=== PATIENT | male | born 1975 | race Caucasian/White ===

== ENCOUNTER → 2019-03-04 14:13 | Outpatient (BNVA) | payer MEDICARE, SELFPAY | PROVIDERS: Family Provider Internal Medicine; PCP Internal Medicine; Visit Provider Anesthesiology | DX: G89.29 Other chronic pain (principal); M54.16 Radiculopathy, lumbar region; M51.36 Other intervertebral disc degeneration, lumbar region; M50.90 Cervical disc disorder, unspecified, unspecified cervical region; M99.81 Other biomechanical lesions of cervical region; Z79.891 Long term (current) use of opiate analgesic | CPT/HCPCS: 99214 ==

== ENCOUNTER → 2019-04-30 12:59 | Outpatient (BNVA) | payer MEDICARE, SELFPAY | PROVIDERS: Family Provider Internal Medicine; PCP Internal Medicine; Visit Provider Anesthesiology | DX: G89.29 Other chronic pain (principal); M51.36 Other intervertebral disc degeneration, lumbar region; M54.16 Radiculopathy, lumbar region; M50.90 Cervical disc disorder, unspecified, unspecified cervical region; M99.81 Other biomechanical lesions of cervical region; Z79.891 Long term (current) use of opiate analgesic | CPT/HCPCS: 99214 ==

== ENCOUNTER → 2019-08-20 13:34 | Outpatient (BNVA) | payer MEDICARE, SELFPAY | PROVIDERS: Family Provider Internal Medicine; PCP Internal Medicine; Visit Provider Nurse Practitioner | DX: M54.2 Cervicalgia (principal); M54.41 Lumbago with sciatica, right side; M54.42 Lumbago with sciatica, left side; M54.16 Radiculopathy, lumbar region; Z79.891 Long term (current) use of opiate analgesic | CPT/HCPCS: 99213; 99214 ==

== ENCOUNTER → 2019-10-24 07:56 | Outpatient (BNVA) | payer MEDICARE, SELFPAY | PROVIDERS: Family Provider Internal Medicine; PCP Internal Medicine; Visit Provider Anesthesiology | DX: G89.29 Other chronic pain (principal); M50.90 Cervical disc disorder, unspecified, unspecified cervical region; M99.81 Other biomechanical lesions of cervical region; M54.42 Lumbago with sciatica, left side; M54.41 Lumbago with sciatica, right side; M51.36 Other intervertebral disc degeneration, lumbar region; M54.16 Radiculopathy, lumbar region; Z79.891 Long term (current) use of opiate analgesic | CPT/HCPCS: 99213; 99214 ==

== ENCOUNTER → 2019-12-30 08:16 | Outpatient (BNVA) | payer MEDICARE, SELFPAY | PROVIDERS: Family Provider Internal Medicine; PCP Internal Medicine; Visit Provider Anesthesiology | DX: G89.29 Other chronic pain (principal); M50.90 Cervical disc disorder, unspecified, unspecified cervical region; M99.81 Other biomechanical lesions of cervical region; M51.36 Other intervertebral disc degeneration, lumbar region; M54.16 Radiculopathy, lumbar region; M54.41 Lumbago with sciatica, right side; M54.42 Lumbago with sciatica, left side; Z79.891 Long term (current) use of opiate analgesic | CPT/HCPCS: 99213; 99214 ==

== ENCOUNTER → 2020-01-23 09:04 | Outpatient (BNVA) | payer MEDICARE, SELFPAY | PROVIDERS: Family Provider Internal Medicine; PCP Internal Medicine; Visit Provider Anesthesiology | DX: G89.29 Other chronic pain (principal); M54.41 Lumbago with sciatica, right side; M54.42 Lumbago with sciatica, left side; M51.36 Other intervertebral disc degeneration, lumbar region; M54.16 Radiculopathy, lumbar region; M99.81 Other biomechanical lesions of cervical region; M50.90 Cervical disc disorder, unspecified, unspecified cervical region; Z79.899 Other long term (current) drug therapy; Z79.891 Long term (current) use of opiate analgesic | CPT/HCPCS: 99213; 99214 ==

== ENCOUNTER → 2020-03-26 08:04 | Outpatient (BNVA) | payer MEDICARE, SELFPAY | PROVIDERS: Family Provider Internal Medicine; PCP Internal Medicine; Visit Provider Anesthesiology | DX: G89.29 Other chronic pain (principal); M51.36 Other intervertebral disc degeneration, lumbar region; M54.16 Radiculopathy, lumbar region; M99.81 Other biomechanical lesions of cervical region; M50.90 Cervical disc disorder, unspecified, unspecified cervical region; Z79.899 Other long term (current) drug therapy; Z79.891 Long term (current) use of opiate analgesic | CPT/HCPCS: 99214 ==

== ENCOUNTER 2020-04-06 09:49 | Emergency (ER) | payer MEDICARE, SELFPAY ==
[2020-04-06 09:56] VITALS: BP 157/92; PULSE 67; RESP 16; TEMP 36.5; O2SAT 100; BMI 22.2
--- NOTE | 2020-04-06 10:13 | USCV_ITS ---
Zak Coleman Age: 44 Gender: M : 1975 Exam Date: 04/06/2020 10:31 Ordering Phys: Jose Nixon DO Technologist: Eugenio Gilmore Exam Location: [facility] [place]_ Indication: leg pain PROCEDURES: Venous duplex imaging was performed in only the right lower extremity. The following venous structures were evaluated: common femoral vein, profunda vein, proximal portion of the greater saphenous vein, superficial femoral vein, and the popliteal vein. In addition, the posterior tibial and peroneal trunk were evaluated. Serial compression, augmentation maneuvers, and spectral Doppler flow evaluation were performed. FINDINGS: Normal 2-D Doppler and augmentation and compressibility throughout the lower extremity venous structures. Additional imaging through the proximal calf veins also reveals no thrombus. Limited evaluation of the greater saphenous vein is patent with no thrombus.. CONCLUSIONS No evidence of right lower extremity DVT. Manuel De Paz MD (Electronically Signed) Final Date: 06 April 2020 11:49 S
[2020-04-06 10:17] VITALS: BP 153/88; PULSE 75; RESP 16; O2SAT 97
--- NOTE | 2020-04-06 10:18 | W.ED.GENADLT ---
HPI - General Adult General: Chief complaint: General Medical Stated complaint: chest/ r leg pain, suspects blood clot Time Seen by Provider: 04/06/20 09:50 History of Present Illness: HPI narrative: 44-year-old male presents complaining of right medial thigh pain radiating up into the groin. He did state initially thought he strained a muscle in his leg. 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 (a nurses note list of chest pain. When I talked to him he states he will get brief twinges of chest pain that last for seconds and then resolved not associated shortness of breath and he has none now.) He has chronic neck and back pain which remains largely unchanged he is on oxycodone and tramadol for that. Onset (ago): day(s) Location: lower extremity (Right medial thigh) Severity: mild Quality: aching Relieving factors: none Exacerbating factors: none Associated symptoms: Deny chest pain, confusion, cough, diaphoresis, decreased appetite, dyspnea, fevers/chills, headache(s), malaise, nausea, rash, palpitations, seizures, short of breath, syncope, vomiting or weakness Review of Systems Const: Denies: malaise or diaphoresis ENMT: Denies: throat pain, ear or mastoid pain, nasal discharge or nasal congestion Card: Denies: chest pain or palpitations Resp: Denies: dyspnea GI: Denies: nausea or vomiting : Denies: flank pain, dysuria, urinary frequency or urinary urgency Skin/Breast: Denies: rash Neuro: Denies: headache(s) or confusion [facility] ED PFSH: Medical History Cervical disc disease Chronic low back pain DDD (degenerative disc disease), lumbar Encounter for long-term opiate analgesic use Left forearm fracture Long-term use of high-risk medication Lumbar radiculitis Neural foraminal stenosis of cervical spine Opioid contract exists Surgical History History of surgery on arm Steal plate due to compound fx 1998 Left arm Family History Other Age related osteoporosis CAD (coronary artery disease) Heart disease Social History Smoking and tobacco status: former smoker Second hand smoke exposure: No Alcohol intake: never History of recent travel: No Physical Exam Const: COMMON NORMALS: no acute distress GENERAL APPEARANCE: cooperative and comfortable ORIENTATION/CONSCIOUSNESS: Yes awake, Yes oriented to person, Yes oriented to place and Yes oriented to time HENMT: COMMON NORMALS: normocephalic, atraumatic and hearing grossly normal bilaterally HEAD & SCALP: normocephalic and atraumatic Neck/C-Spine: COMMON NORMALS: no JVD Resp: COMMON NORMALS: normal respiratory effort, No retractions, No use of accessory muscles and clear to auscultation bilaterally AUSCULTATION: clear to auscultation bilaterally Cardio: COMMON NORMALS: no JVD, regular rate, regular rhythm and No murmurs present (Cardio) RATE: regular rate RHYTHM: regular rhythm GI: COMMON NORMALS: Soft to palpation and No hepatosplenomegaly present AUSCULTATION: Yes normoactive bowel sounds PALPATION: Yes Soft to palpation, No Tenderness to palpation present (GI), No Guarding due to palpation present (GI) and Yes No hepatosplenomegaly present Extremity: COMMON NORMALS: normal to inspection, capillary refill normal, no clubbing, cyanosis or edema, no calf tenderness and no pedal edema Neuro: SENSORIUM/ORIENTATION: Yes oriented to person, Yes oriented to place and Yes oriented to time Skin: COMMON NORMALS: no rashes or lesions noted GENERAL SKIN EXAM: no rashes or lesions noted Course Vital Signs: Vital signs: Vital Signs Temperature 97.7 F 04/06/20 09:56 Pulse Rate 84 04/06/20 11:47 Respiratory Rate 18 04/06/20 11:47 Blood Pressure 134/74 04/06/20 11:47 Pulse Oximetry 98 04/06/20 11:47 MDM - General Adult MDM Narrative: Medical decision making narrative: Venous duplex negative patient stable. His biggest concern is of a DVT. He is not having any chest discomfort now. He does have a pain that is reproducible with movement in the leg suspect he has a strain of the gracilis muscle. Treat with anti-inflammatories ice and heat return if has further problems. Lab Data: Labs: Lab Results 04/06/20 04/06/20 04/06/20 Range/Units 10:28 10:28 10:28 WBC 8.6 (4.0-10.0) 10^3/ uL RBC 4.69 (4.1-5.3) 10^6/u L Hgb 13.6 (11.7-16.6) g/dL Hct 40.8 L (42.0-52.0) % MCV 87.0 (80-94) fL MCH 29.0 (28.0-34.0) pg MCHC 33.3 (30.0-36.0) g/dL RDW 12.0 L (12.1-15.1) % Plt Count 308 (130-400) 10^3/c mm MPV 9.6 (7.4-10.4) fL Neut % (Auto) 79.3 % Lymph % (Auto) 11.8 % [place] % (Auto) 6.7 % Eos % (Auto) 0.9 % Baso % (Auto) 0.9 % Neut # (Auto) 6.78 (1.8-7.7) 10^3/u L Lymph # (Auto) 1.0 (0.8-4.8) 10^3/u L [place] # (Auto) 0.6 (0.2-0.9) 10^3/u L Eos # (Auto) 0.1 (0.0-0.8) 10^3/u L Baso # (Auto) 0.1 (0.0-0.1) 10^3/u L Nucleated RBC % (a uto) 0 % Nucleated RBCs # 0.0 /100WBC PT 14.20 (12.1-14.9) SECO NDS INR 1.06 (0.8-1.2) APTT 27.4 (23.9-36.7) SECO NDS Sodium 137 (136-145) mmol/L Potassium 3.9 (3.5-5.1) mmol/L Chloride 100 (98-107) mmol/L Carbon Dioxide 30 H (22-29) mmol/L Anion Gap 10.9 (5-19) BUN 10 (6-20) mg/dL Creatinine 0.7 (0.7-1.2) mg/dL GFR Calculation 121.4 (90-130) mL/min Glucose 98 (65-115) mg/dL Calculated Osmolal ity 283 L (285-295) mOsm/k g Calcium 9.6 (8.5-10.5) mg/dL Total Bilirubin 0.7 (0.15-1.2) mg/dL AST 18 (0-40) U/L ALT 14 (0-41) U/L Alkaline Phosphata se 63 (40-130) IU/L Total Protein 7.7 (6.6-8.7) g/dL Albumin 4.5 (3.5-5.2) g/dL Globulin 3.2 (1.3-4.6) g/dL Discharge Plan Discharge Patient Disposition: Home Clinical Impression: Strain of groin Condition: Stable Prescriptions: No Action oxycodone 15 mg tablet 15 mg PO .5 times a day PRN (Reason: pain) 30 Days Qty: 150 RF: 0 oxycodone 15 mg tablet 15 mg PO .5 times a day PRN (Reason: pain) 30 Days Qty: 30 RF: 0 tramadol 50 mg tablet 50 mg PO QID PRN (Reason: pain) 30 Days Qty: 150 RF: 1 Discharge Orders: Discharge ED (Routine); Ordered 04/06/20 Ordered By: Jose Nixon Referrals: Cornelius Gomez MD [Primary Care Provider] - Discharge Diet: Usual diet Discharge Activity: Increase activity as tolerated Patient Instructions: Opioid Safety Coding Level of Care Code ED Mortgage Protection Specialist for Karely Donovan
[2020-04-06 10:43] LABS: Basophils # 0.1 10^3/uL (0.0-0.1); Basophils % 0.9 %; Eosinophils # 0.1 10^3/uL (0.0-0.8); Eosinophils % 0.9 %; Hematocrit 40.8 % (42.0-52.0); Hemoglobin 13.6 g/dL (11.7-16.6); Lymphocytes % 11.8 %; Mean Corpuscular HGB Conc 33.3 g/dL (30.0-36.0); Mean Platelet Volume 9.6 fL (7.4-10.4); Monocytes # 0.6 10^3/uL (0.2-0.9); Monocytes % 6.7 %; Neutrophils # 6.78 10^3/uL (1.8-7.7); Neutrophils % 79.3 %; Nucleated Red Blood Cells % 0 %; Platelet Count 308 10^3/cmm (130-400); Red Blood Count 4.69 10^6/uL (4.1-5.3); White Blood Count 8.6 10^3/uL (4.0-10.0)
--- NOTE | 2020-04-06 10:47 | PC.NURSE ---
patient c/o right thigh pain radiating up into the groin x 2 weeks, getting worse.
[2020-04-06 10:56] LABS: Alanine Aminotransferase 14 U/L (0-41); Albumin Level 4.5 g/dL (3.5-5.2); Alkaline Phosphatase 63 IU/L (40-130); Anion Gap 10.9 (5-19); Aspartate Amino Transferase 18 U/L (0-40); Blood Urea Nitrogen 10 mg/dL (6-20); Calcium 9.6 mg/dL (8.5-10.5); Carbon Dioxide 30 mmol/L (22-29); Chloride 100 mmol/L (98-107); Globulin 3.2 g/dL (1.3-4.6); Glomerular Filtration Rate 121.4 mL/min (90-130); Glucose 98 mg/dL (65-115); Osmolality Calculated 283 mOsm/kg (285-295); Potassium 3.9 mmol/L (3.5-5.1); Sodium 137 mmol/L (136-145); Total Bilirubin 0.7 mg/dL (0.15-1.2); Total Protein 7.7 g/dL (6.6-8.7)
[2020-04-06 11:03] VITALS: BP 134/76; PULSE 70; RESP 16; O2SAT 98
[2020-04-06 11:16] LABS: INR 1.06 (0.8-1.2)
[2020-04-06 11:18] LABS: Partial Thromboplastin Time 27.4 SECONDS (23.9-36.7)
[2020-04-06 11:47] VITALS: BP 134/74; PULSE 84; RESP 18; O2SAT 98
== END 2020-04-06 11:47 | disposition home or self-care (01) ==
PROVIDERS: Emergency Provider Family Medicine; PCP Internal Medicine
DX: S39.011A Strain of muscle, fascia and tendon of abdomen, initial encounter (principal); X58.XXXA Exposure to other specified factors, initial encounter; Z87.891 Personal history of nicotine dependence; M79.604 Pain in right leg
CPT/HCPCS: 80053; 85025; 85610; 85730; 93971; 99283

== ENCOUNTER → 2020-06-01 10:32 | Outpatient (BNVA) | payer MEDICARE, SELFPAY | PROVIDERS: PCP Internal Medicine; Visit Provider Anesthesiology | DX: G89.29 Other chronic pain (principal); M51.36 Other intervertebral disc degeneration, lumbar region; M54.16 Radiculopathy, lumbar region; M99.81 Other biomechanical lesions of cervical region; M50.90 Cervical disc disorder, unspecified, unspecified cervical region; Z79.899 Other long term (current) drug therapy; Z79.891 Long term (current) use of opiate analgesic | CPT/HCPCS: 99213; 99214 ==

== ENCOUNTER → 2020-06-23 09:05 | Outpatient (BNVA) | payer MEDICARE, SELFPAY | PROVIDERS: PCP Internal Medicine; Visit Provider Anesthesiology | DX: G89.29 Other chronic pain (principal); M51.36 Other intervertebral disc degeneration, lumbar region; M54.16 Radiculopathy, lumbar region; M99.81 Other biomechanical lesions of cervical region; M50.90 Cervical disc disorder, unspecified, unspecified cervical region; Z79.891 Long term (current) use of opiate analgesic | CPT/HCPCS: 99213 ==

== ENCOUNTER → 2020-08-25 09:59 | Outpatient (BNVA) | payer MEDICARE, SELFPAY | PROVIDERS: PCP Internal Medicine; Visit Provider Anesthesiology | DX: G89.29 Other chronic pain (principal); M51.36 Other intervertebral disc degeneration, lumbar region; M54.16 Radiculopathy, lumbar region; M50.90 Cervical disc disorder, unspecified, unspecified cervical region; Z79.891 Long term (current) use of opiate analgesic; Z87.891 Personal history of nicotine dependence | CPT/HCPCS: 99214 ==

== ENCOUNTER → 2020-10-27 08:05 | Outpatient (BNVA) | payer MEDICARE, SELFPAY | PROVIDERS: PCP Internal Medicine; Visit Provider Anesthesiology | DX: G89.29 Other chronic pain (principal); M50.90 Cervical disc disorder, unspecified, unspecified cervical region; M51.36 Other intervertebral disc degeneration, lumbar region; M54.16 Radiculopathy, lumbar region; F17.210 Nicotine dependence, cigarettes, uncomplicated; Z79.891 Long term (current) use of opiate analgesic | CPT/HCPCS: 99214 ==

== ENCOUNTER → 2021-01-05 07:56 | Outpatient (BNVA) | payer MEDICARE, SELFPAY | PROVIDERS: PCP Family Medicine; Visit Provider Anesthesiology | DX: G89.29 Other chronic pain (principal); M51.36 Other intervertebral disc degeneration, lumbar region; M54.16 Radiculopathy, lumbar region; M99.81 Other biomechanical lesions of cervical region; M50.90 Cervical disc disorder, unspecified, unspecified cervical region; Z79.899 Other long term (current) drug therapy; Z79.891 Long term (current) use of opiate analgesic; Z71.6 Tobacco abuse counseling; F17.200 Nicotine dependence, unspecified, uncomplicated | CPT/HCPCS: 99214 ==

== ENCOUNTER → 2021-03-11 10:34 | Outpatient (BNVA) | payer MEDICARE, SELFPAY | PROVIDERS: PCP Family Medicine; Visit Provider Anesthesiology | DX: G89.29 Other chronic pain (principal); M54.50 Low back pain, unspecified; M54.2 Cervicalgia; Z79.891 Long term (current) use of opiate analgesic; Z87.891 Personal history of nicotine dependence | CPT/HCPCS: 99214 ==

== ENCOUNTER 2021-12-10 21:14 | Emergency (ER) | payer MEDICARE, SELFPAY ==
[2021-12-10 21:53] VITALS: BP 129/78; PULSE 67; RESP 15; TEMP 36.7; O2SAT 98; BMI 21.9
--- NOTE | 2021-12-10 22:03 | ED_ITS ---
HPI - Skin/Abscess/Foreign Bdy General: Chief complaint: Skin/Abscess/Foreign Body Stated complaint: right leg wound / possible bite Time Seen by Provider: 12/10/21 22:02 History of Present Illness: Patient is a 46-year-old male who comes to the ED with possible abscess. He noticed a small néstor that he described as a single puncture wound on his right inner thigh about 5 days ago. The lesion on right posterior aspect of thigh. It is now more painful, larger, swollen and red. Denies any purulent drainage. He rates the pain currently a 10 out of 10. Patient has a history of past staph infections. Associated symptoms: Deny chills, fever(s), nausea or vomiting Review of Systems Const: Denies: fever(s), chills or fatigue Eyes: Denies: change in vision or eye discomfort ENMT: Denies: throat pain, odynophagia, nasal discharge or nasal congestion Card: Denies: chest pain, palpitations, edema, swelling of feet/ankles, dyspnea on exertion or orthopnea Resp: Denies: dyspnea, productive cough or non-productive cough GI: Denies: abdominal pain, nausea, vomiting, diarrhea, constipation or hematochezia : Denies: flank pain, difficulty urinating, dysuria or hematuria Musc: Denies: neck pain, back pain or extremity swelling Skin/Breast: Reports: new lesions (Abscess on right thigh.); Denies: rash Neuro: Denies: headache(s), numbness in extremities or weakness in extremities PFS ED PFSH: Medical History Cervical disc disease Chronic low back pain DDD (degenerative disc disease), lumbar Encounter for long-term opiate analgesic use Left forearm fracture Long-term use of high-risk medication Lumbar radiculitis Neural foraminal stenosis of cervical spine Opioid contract exists Surgical History History of surgery on arm Steal plate due to compound fx 1997 Left arm Family History Other Age related osteoporosis CAD (coronary artery disease) Heart disease Social History Smoking and tobacco status: former smoker Second hand smoke exposure: No Alcohol intake: never History of recent travel: No Physical Exam Const: COMMON NORMALS: patient oriented x3, healthy appearing and alert GEN ERAL APPEARANCE: cooperative HENMT: COMMON NORMALS: normocephalic HEAD & SCALP: normocephalic MOUTH: Normal oral and palatal mucosa present THROAT: posterior oropharynx normal and uvula midline Neck/C-Spine: COMMON NORMALS: supple GENERAL: Yes normal visual inspection Resp: COMMON NORMALS: normal respiratory effort, No retractions, No use of accessory muscles and clear to auscultation bilaterally AUSCULTATION: clear to auscultation bilaterally Cardio: COMMON NORMALS: regular rate, regular rhythm, S1 normal heart sound present, S2 normal heart sound present, No gallops present (Cardio), No clicks present (Cardio), No murmurs present (Cardio) and Peripheral pulses 2+ throughout RATE: regular rate RHYTHM: regular rhythm HEART SOUNDS: S1 normal heart sound present and S2 normal heart sound present PERIPHERAL PULSES: Peripheral pulses 2+ throughout GI: COMMON NORMALS: Normal to inspection, nondistended, normoactive bowel sounds present, Soft to palpation, non-tender and no masses PALPATION: Yes Soft to palpation : COMMON NORMALS: Yes no CVA tenderness BLADDER/KIDNEY EXAM: Yes no CVA tenderness Back/Pelvis: COMMON NORMALS: no CVA tenderness Extremity: NARRATIVE EXTREMITY EXAM: Posterior aspect of right thigh-tender nodule that is fluctuant and indurated. Surrounding erythema and warmth noted. No purulent drainage seen. Findings suggestive of an abscess. GENERAL: Yes normal exam except as noted Neuro: COMMON NORMALS: patient oriented x3 SENSORIUM/ORIENTATION: Yes alert GAIT: Yes Normal gait present Skin: NARRATIVE SKIN EXAM: Posterior aspect of right thigh-tender nodule that is fluctuant and indurated. Surrounding erythema and warmth noted. No purulent drainage seen. Findings suggestive of an abscess. Red streaking noted up in her thigh. GENERAL SKIN EXAM: dry skin Procedures Abscess I/D Site: lower extremity (Right posterior thigh) Side (if applicable): right Sedation/analgesia: none Local Anesthetic: lidocaine 1% and with epi Amount of anesthesia used (mL): 3 Technique: incised with #11 blade Amount of fluid expressed (mL): 2 Irrigation: Yes Packing used?: none Course Vital Signs: Vital signs: Vital Signs Temperature 98.0 F 12/10/21 21:53 Pulse Rate 96 12/11/21 00:57 Respiratory Rate 14 12/11/21 00:57 Blood Pressure 128/80 12/11/21 00:57 Pulse Oximetry 96 12/11/21 00:57 Oxygen Delivery Me thod 12/10/21 21:53 MDM - Skin/Abscess/Foreign Bdy Medicial Decision Making Patient is a 46-year-old male who has a abscess on right posterior thigh starting approximately 5 days ago. Denies any fevers or any other symptoms. Surrounding erythema present and some red streaking up thigh as well. Lidocaine 1% with epi was used as local and I&D performed. See procedure note for details. CBC and BMP were unremarkable. Abscess culture pending. Patient was given IV Vanco here in the ED and discharged home with a prescription for Bactrim. Told to follow-up with PCP in the next 2 to 3 days for reevaluation. Return to ED precautions given. Patient understood and agreed with plan. Lab Data I reviewed the patient's lab results. : 12/10/21 22:53 12/10/21 22:53 Laboratory Results WBC 9.6 10^3/uL (4.0-10.0) 12/10/21 22:53 RBC 4.35 10^6/uL (4.1-5.3) 12/10/21 22:53 Hgb 13.2 g/dL (11.7-16.6) 12/10/21 22:53 Hct 39.0 % (42.0-52.0) L 12/10/21 22:53 MCV 89.7 fl (80-94) 12/10/21 22:53 MCH 30.3 pg (28.0-34.0) 12/10/21 22:53 MCHC 33.8 g/dL (30.0-36.0) 12/10/21 22:53 RDW 12.0 % (12.1-15.1) L 12/10/21 22:53 Plt Count 227 10^3/cmm (130-400) 12/10/21 22:53 MPV 9.9 fL (7.4-10.4) 12/10/21 22:53 Neut % (Auto) 69.3 % 12/10/21 22:53 Lymph % (Auto) 16.3 % 12/10/21 22:53 [place] % (Auto) 9.9 % 12/10/21 22:53 Eos % (Auto) 3.2 % 12/10/21 22:53 Baso % (Auto) 1.0 % 12/10/21 22:53 Neut # (Auto) 6.67 10^3/uL (1.8-7.7) 12/10/21 22:53 Lymph # (Auto) 1.6 10^3/uL (0.8-4.8) 12/10/21 22:53 [place] # (Auto) 1.0 10^3/uL (0.2-0.9) H 12/10/21 22:53 Eos # (Auto) 0.3 10^3/uL (0.0-0.8) 12/10/21 22:53 Baso # (Auto) 0.1 10^3/uL (0.0-0.1) 12/10/21 22:53 Nucleated RBC % (auto) 0 % 12/10/21 22:53 Nucleated RBCs # 0.0 /100WBC 12/10/21 22:53 Sodium 137 mmol/L (136-145) 12/10/21 22:53 Potassium 4.4 mmol/L (3.5-5.1) 12/10/21 22:53 Chloride 99 mmol/L (98-107) 12/10/21 22:53 Carbon Dioxide 28 mmol/L (22-29) 12/10/21 22:53 Anion Gap 14.4 (5-19) 12/10/21 22:53 BUN 21 mg/dL (6-20) H 12/10/21 22:53 Creatinine 1.0 mg/dL (0.7-1.2) 12/10/21 22:53 GFR Calculation 79.8 mL/min (90-130) L 12/10/21 22:53 Glucose 118 mg/dL (65-115) H 12/10/21 22:53 Calculated Osmolality 288 mOsm/kg (285-295) 12/10/21 22:53 Calcium 9.1 mg/dL (8.5-10.5) 12/10/21 22:53 Discharge Plan Discharge Patient Disposition: Home Clinical Impression: Abscess of right thigh Condition: Stable Prescriptions: New sulfamethoxazole-trimethoprim 800-160 mg tablet 2 tab PO BID 7 Days Qty: 28 0RF No Action tadalafil [Cialis] 2.5 mg tablet 2.5 mg PO DAILY oxycodone 15 mg tablet 15 mg PO .5 times a day PRN (Reason: pain) 30 Days Qty: 150 0RF Rx Instructions: fill on or after 03/11/21 oxycodone 15 mg tablet 15 mg PO .5 times a day PRN (Reason: pain) 30 Days Qty: 150 0RF Rx Instructions: Fill on or after 04/10/21 tramadol 50 mg tablet 50 mg PO QID PRN (Reason: pain) 30 Days Qty: 150 1RF Rx Instructions: Fill on or after 03/11/21 and 04/10/21 gabapentin 600 mg tablet 600 mg PO QID 30 Days Qty: 120 1RF Discharge Orders: Discharge ED (Routine); Ordered 12/10/21 Ordered By: Aramis Boyd Referrals: Julius Gallardo [Primary Care Provider] - Discharge Diet: Regular Discharge Activity: Increase activity as tolerated Patient Instructions: Abscess (ED), Abscess Incision and Drainage (DC) Activity Restrictions/Additional Instructions: Follow-up with medical provider as directed in the next 2 to 3 days to have abscess wound rechecked. Take medications as prescribed. Return to the ER or your medical provider if condition worsens. Please read and understand discharge instructions. Thank you for choosing [facility] for your healthcare needs today. Please realize this is an emergency room and that we are providing you with a medical screening exam and this may not be complete and all inclusive of all the testing and or work up that you may need to determine your ailment or severity of your illness. It is very important that you follow up as instructed or that you return to the Emergency Department should you have concerns or if your condition changes or worsens in any way. Coding Level of Care Code ED Chucking Lathe Operator for Karely Donovan Exam Comprehensive
[2021-12-10 22:57] LABS: Basophils # 0.1 10^3/uL (0.0-0.1); Eosinophils # 0.3 10^3/uL (0.0-0.8); Eosinophils % 3.2 %; Hemoglobin 13.2 g/dL (11.7-16.6); Lymphocytes # 1.6 10^3/uL (0.8-4.8); Lymphocytes % 16.3 %; Mean Corpuscular HGB Conc 33.8 g/dL (30.0-36.0); Mean Corpuscular Hemoglobin 30.3 pg (28.0-34.0); Mean Corpuscular Volume 89.7 fl (80-94); Mean Platelet Volume 9.9 fL (7.4-10.4); Monocytes % 9.9 %; Neutrophils # 6.67 10^3/uL (1.8-7.7); Neutrophils % 69.3 %; Nucleated Red Blood Cells % 0 %; Platelet Count 227 10^3/cmm (130-400); Red Blood Count 4.35 10^6/uL (4.1-5.3); White Blood Count 9.6 10^3/uL (4.0-10.0)
[2021-12-10] MEDS: sodium chloride 0.9% 500 ML 999 ML IV (23:08)
[2021-12-10] MEDS: vancomycin 1,500 MG/300 ML PIGGYBACK 200 MG IV (23:08)
[2021-12-10 23:14] LABS: Anion Gap 14.4 (5-19); Blood Urea Nitrogen 21 mg/dL (6-20); Calcium 9.1 mg/dL (8.5-10.5); Carbon Dioxide 28 mmol/L (22-29); Chloride 99 mmol/L (98-107); Glomerular Filtration Rate 79.8 mL/min (90-130); Glucose 118 mg/dL (65-115); Osmolality Calculated 288 mOsm/kg (285-295); Potassium 4.4 mmol/L (3.5-5.1); Sodium 137 mmol/L (136-145)
[2021-12-10 23:30] VITALS: BP 116/74; PULSE 59; RESP 14; O2SAT 95
[2021-12-11] VITALS: BP 128/80; PULSE 96; RESP 14; O2SAT 96
[2021-12-11 00:57] VITALS: BP 128/80; PULSE 96; RESP 14; O2SAT 96
== END 2021-12-11 00:59 | disposition home or self-care (01) ==
PROVIDERS: Emergency Provider Physician Assistant; PCP Family Medicine
DX: L02.415 Cutaneous abscess of right lower limb (principal); Z87.891 Personal history of nicotine dependence
CPT/HCPCS: 10060; 80048; 85025; 87070; 87075; 87077; 87186; 87205; 96365; 96366; 99284; J3370; J7040

== ENCOUNTER 2022-08-01 19:14 | Emergency (ER) | payer MEDICARE, SELFPAY ==
--- NOTE | 2022-08-01 19:15 | XRR_ITS ---
PROCEDURE INFORMATION: Exam: XR Chest Exam date and time: 08/01/2022 7:26 PM Age: 46 years old Clinical indication: Pain; Chest pressure; Additional info: Cp TECHNIQUE: Imaging protocol: Radiologic exam of the chest. Views: 1 view. COMPARISON: CR XR chest 1V [id number] 10/22/2015 11:06 PM FINDINGS: Lungs: Lungs are clear bilaterally. Pleural spaces: No pleural effusion. No pneumothorax. Heart/Mediastinum: The cardiac silhouette and mediastinal contours are unremarkable. Bones/joints: Unremarkable for age. XR/XR chest 1V portable [id number] IMPRESSION: No acute cardiopulmonary process.
--- NOTE | 2022-08-01 19:15 | ECG_ITS ---
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 Measurements Intervals [place] Rate: 73 P: 76 MD: 140 QRS: 88 QRSD: 101 T: 48 QT: 366 QTc: 406 Interpretive Statements SINUS RHYTHM POSSIBLE LEFT ATRIAL ENLARGEMENT [-0.1mV P-WAVE IN V1/V2] No previous ECG available for comparison Electronically Signed On 08-02-2022 0:19:59 CDT by Fay Erickson M.D. [id number]
[2022-08-01 19:17] VITALS: BMI 26.6
[2022-08-01 19:22] VITALS: BP 154/82; PULSE 75; RESP 16; TEMP 37.1; O2SAT 99
--- NOTE | 2022-08-01 19:35 | ED_ITS ---
HPI - Chest Pain General: Chief Complaint: Chest Pain Stated Complaint: cp Time Seen by Provider: 08/01/22 19:26 Source: patient Mode of arrival: ambulatory Limitations: no limitations History of Present Illness: 46-year-old male states he been having some left-sided chest pain since Sunday states been a sharp pain in the left chest states intermittent states it is worse with palpation when he moves his left arm. States pain at rest is minimal currently a 1 out of 10. He denies any shortness of breath denies any cough denies any fever. He denies any history of heart disease Associated symptoms: Deny abdominal pain, dyspnea, fever(s), nausea or vomiting Review of Systems Const: Denies: fever(s), chills, body aches or change in appetite ENMT: Denies: throat pain or dental pain Card: Reports: chest pain Resp: Denies: dyspnea GI: Denies: abdominal pain, nausea, vomiting or diarrhea Musc: Denies: neck pain or back pain Skin/Breast: Denies: rash Neuro: Denies: headache(s) PFSH ED PFSH: Medical History Cervical disc disease Chronic low back pain DDD (degenerative disc disease), lumbar Encounter for long-term opiate analgesic use Left forearm fracture Long-term use of high-risk medication Lumbar radiculitis Neural foraminal stenosis of cervical spine Opioid contract exists Surgical History History of surgery on arm Steal plate due to compound fx 1998 Left arm Family History Other Age related osteoporosis CAD (coronary artery disease) Heart disease Social History Smoking and tobacco status: former smoker Second hand smoke exposure: No Alcohol intake: never Substance/Drug Use: never Physical Exam Const: COMMON NORMALS: no acute distress, patient oriented x3 and healthy appearing HENMT: COMMON NORMALS: normocephalic and atraumatic HEAD & SCALP: normocephalic and atraumatic Eye: COMMON NORMALS: conjunctivae normal CONJUNCTIVA: Yes conjunctivae normal Neck/C-Spine: COMMON NORMALS: full ROM and supple Chest: COMMONS NORMALS: normal inspection of the chest OTHER: point tender over left chest Resp: COMMON NORMALS: normal respiratory effort, No retractions, No use of accessory muscles and clear to auscultation bilaterally AUSCULTATION: clear to auscultation bilaterally Cardio: COMMON NORMALS: regular rate, regular rhythm and No murmurs present (Cardio) RATE: regular rate RHYTHM: regular rhythm GI: COMMON NORMALS: Normal to inspection, nondistended, normoactive bowel sounds present, Soft to palpation, non-tender and no masses PALPATION: Yes Soft to palpation Extremity: COMMON NORMALS: normal to inspection and full ROM Neuro: COMMON NORMALS: patient oriented x3, moves all extremities and no focal motor deficits Psych: COMMON NORMALS: mental status grossly normal, Normal thought process present and cooperative THOUGHT PROCESS: Normal thought process present Skin: COMMON NORMALS: no rashes or lesions noted and no wounds GENERAL SKIN EXAM: no rashes or lesions noted Course Vital Signs: Vital signs: Vital Signs Temperature 98.8 F 08/01/22 19:22 Pulse Rate 75 08/01/22 19:22 Respiratory Rate 16 08/01/22 19:22 Blood Pressure 154/82 08/01/22 19:22 Pulse Oximetry 99 08/01/22 19:22 Oxygen Delivery Me thod Room Air 08/01/22 19:22 MDM - Chest Pain Medical Decision Making Patient presents here with chest pains likely chest wall pain he is point tenderness pain is worse with movement of his arm pains been since Sunday his first troponin here is normal no reason to do 2-hour troponin is no signs of acute coronary syndrome no signs of dissection or PE. He is return if worsening. He is to follow-up with his PCP. Lab Data 08/01/22 19:32 08/01/22 19:32 Radiology Impressions Chest X-Ray 08/01/22 19:15 IMPRESSION: No acute cardiopulmonary process. Laboratory Results WBC 6.7 10^3/uL (4.0-10.0) 08/01/22 19:32 RBC 5.08 10^6/uL (4.1-5.3) 08/01/22 19:32 Hgb 15.2 g/dL (11.7-16.6) 08/01/22 19:32 Hct 45.6 % (42.0-52.0) 08/01/22 19:32 MCV 89.8 fl (80-94) 08/01/22 19: MCH 29.9 pg (28.0-34.0) 08/01/22 19: MCHC 33.3 g/dL (30.0-36.0) 08/01/22 19: RDW 12.4 % (12.1-15.1) 08/01/22: Plt Count 244 10^3/cmm (130-400) 08/01/22 19: MPV 9.7 fL (7.4-10.4) 08/01/22 19: Neut % (Auto) 63.9 % 08/01/22 19: Lymph % (Auto) 22.2 % 08/01/22: [place] % (Auto) 8.6 % 08/01/22 19: Eos % (Auto) 3.9 % 08/01/22: Baso % (Auto) 1.0 % 08/01/22: Neut # (Auto) 4.29 10^3/uL (1.8-7.7) 08/01/22 19: Lymph # (Auto) 1.5 10^3/uL (0.8-4.8) 08/01/22: [place] # (Auto) 0.6 10^3/uL (0.2-0.9) 08/01/22 19: Eos # (Auto) 0.3 10^3/uL (0.0-0.8) 08/01/22: Baso # (Auto) 0.1 10^3/uL (0.0-0.1) 08/01/22: Nucleated RBC % (auto) 0 % 08/01/22: Nucleated RBCs # 0.0 /100WBC 08/01/22 19: PT 12.50 SECONDS (12.1-14.9) 08/01/22: INR 0.91 (0.8-1.2) 08/01/22 19:32 Sodium 140 mmol/L (136-145) 08/01/22 19: Potassium 3.7 mmol/L (3.5-5.1) 08/01/22 19: Chloride 102 mmol/L (98-107) 08/01/22 19:32 Carbon Dioxide 25 mmol/L (22-29) 08/01/22 19:32 Anion Gap 16.7 (5-19) 08/01/22 19:32 BUN 18 mg/dL (6-20) 08/01/22 19:32 Creatinine 0.9 mg/dL (0.7-1.2) 08/01/22 19:32 GFR Calculation 90.1 mL/min (90-130) 08/01/22 19:32 Glucose 80 mg/dL (65-115) 08/01/22 19:32 Calculated Osmolality 291 mOsm/kg (285-295) 08/01/22 19:32 Calcium 9.4 mg/dL (8.5-10.5) 08/01/22 19:32 Total Bilirubin 0.6 mg/dL (0.15-1.2) 08/01/22 19:32 AST 25 U/L (0-40) 08/01/22 19:32 ALT 22 U/L (0-41) 08/01/22 19:32 Alkaline Phosphatase 67 U/L (40-130) 08/01/22 19:32 Troponin T Baseline 6 ng/L (0-15) 08/01/22 19:32 Total Protein 8.2 g/dL (6.6-8.7) 08/01/22 19:32 Albumin 4.9 g/dL (3.5-5.2) 08/01/22 19:32 Globulin 3.3 g/dL (1.3-4.6) 08/01/22 19:32 Lipase 18 U/L (13-60) 08/01/22 19:32 Discharge Plan Discharge Patient Disposition: Home Clinical Impression: Chest pain Condition: Stable Prescriptions: No Action tadalafil [Cialis] 2.5 mg tablet 2.5 mg PO DAILY oxycodone 15 mg tablet 15 mg PO .5 times a day PRN (Reason: pain) 30 Days Qty: 150 0RF Rx Instructions: fill on or after 03/11/21 oxycodone 15 mg tablet 15 mg PO .5 times a day PRN (Reason: pain) 30 Days Qty: 150 0RF Rx Instructions: Fill on or after 04/10/21 tramadol 50 mg tablet 50 mg PO QID PRN (Reason: pain) 30 Days Qty: 150 1RF Rx Instructions: Fill on or after 03/11/21 and 04/10/21 gabapentin 600 mg tablet 600 mg PO QID 30 Days Qty: 120 1RF Discharge Orders: Discharge ED (Routine); Ordered 08/01/22 Ordered By: Isabelle Cheek Referrals: Julius Gallardo [Primary Care Provider] - 1-3 days Discharge Diet: Advance as tolerated Discharge Activity: Resume usual activity Patient Instructions: Chest Wall Pain (ED) Coding Level of Care Code ED Supervisor Home Energy Consultant for Karely Donovan
[2022-08-01 19:38] LABS: Basophils # 0.1 10^3/uL (0.0-0.1); Eosinophils # 0.3 10^3/uL (0.0-0.8); Eosinophils % 3.9 %; Hematocrit 45.6 % (42.0-52.0); Hemoglobin 15.2 g/dL (11.7-16.6); Lymphocytes # 1.5 10^3/uL (0.8-4.8); Lymphocytes % 22.2 %; Mean Corpuscular HGB Conc 33.3 g/dL (30.0-36.0); Mean Corpuscular Hemoglobin 29.9 pg (28.0-34.0); Mean Corpuscular Volume 89.8 fl (80-94); Mean Platelet Volume 9.7 fL (7.4-10.4); Monocytes # 0.6 10^3/uL (0.2-0.9); Monocytes % 8.6 %; Neutrophils # 4.29 10^3/uL (1.8-7.7); Neutrophils % 63.9 %; Nucleated Red Blood Cells % 0 %; Platelet Count 244 10^3/cmm (130-400); Red Blood Count 5.08 10^6/uL (4.1-5.3); Red Cell Distribution Width 12.4 % (12.1-15.1); White Blood Count 6.7 10^3/uL (4.0-10.0)
[2022-08-01 19:52] LABS: INR 0.91 (0.8-1.2)
[2022-08-01] MEDS: aspirin 81 mg Chew Tablet 324 MG PO (19:52)
[2022-08-01 19:57] LABS: Troponin(5th) Baseline 6 ng/L (0-15)
[2022-08-01 19:58] LABS: Alanine Aminotransferase 22 U/L (0-41); Albumin Level 4.9 g/dL (3.5-5.2); Alkaline Phosphatase 67 U/L (40-130); Anion Gap 16.7 (5-19); Aspartate Amino Transferase 25 U/L (0-40); Blood Urea Nitrogen 18 mg/dL (6-20); Calcium 9.4 mg/dL (8.5-10.5); Carbon Dioxide 25 mmol/L (22-29); Chloride 102 mmol/L (98-107); Globulin 3.3 g/dL (1.3-4.6); Glomerular Filtration Rate 90.1 mL/min (90-130); Glucose 80 mg/dL (65-115); Lipase 18 U/L (13-60); Osmolality Calculated 291 mOsm/kg (285-295); Potassium 3.7 mmol/L (3.5-5.1); Sodium 140 mmol/L (136-145); Total Bilirubin 0.6 mg/dL (0.15-1.2); Total Protein 8.2 g/dL (6.6-8.7)
[2022-08-01 20:14] VITALS: BP 154/82; PULSE 75; RESP 16; TEMP 37.1; O2SAT 99
== END 2022-08-01 20:14 | disposition home or self-care (01) ==
PROVIDERS: Emergency Provider Emergency Medicine; PCP Family Medicine
DX: R07.9 Chest pain, unspecified (principal); Z87.891 Personal history of nicotine dependence
CPT/HCPCS: 71045; 80053; 83690; 84484; 85025; 85610; 93005; 99285